=== PATIENT | male | born 1955 | race Caucasian/White ===

== ENCOUNTER 2017-12-10 16:05 | Outpatient (RCR) | payer OTHER ==
[~2017-12-10 16:05] MED LIST: ASPI-715 PO; DIPH-911 PO; PRAV20TA65 PO; SIMV-44 PO
[2017-12-11] MEDS ORDERED: GADOBENATE 529MG/1ML 15ML VIAL IVP ONE (13:47)
--- NOTE | 2017-12-11 15:31 | RADIOLOGY IMAGING REPORT ---
FACILITY: [facility] PATIENT NAME: Oliver Rosales : 1955 MR: [id number] V: [id number] EXAM DATE: ORDERING PHYSICIAN: SATHISH DARBY TECHNOLOGIST: Location: [facility] [place] Patient: Oliver Rosales : 1955 Visit/Account:[id number] Date of Sevice: 12/11/2017 EXAMINATION: Brain MRI without IV contrast Brain MRI with IV contrast, detailed IACs History: Left asymmetrical sensorineural hearing loss COMPARISON STUDIES: none TECHNIQUE: Multi-planar, multi-sequence brain MRI was performed before and after IV gadolinium. Thin section imaging was performed in the axial and coronal planes centered on the IACs. Contrast: 15 mL of IV MultiHance FINDINGS: IAC detailed study: Brainstem: negative Cerebellopontine angles / IACs / CN VII and VIII: negative Inner ear endolymphatic structures: negative Middle ear: negative Mastoids / petrous apices: negative Rest of brain: Ventricles / sulci / fissures: negative Masses / hemorrhage / midline shift: negative White matter: Within range of normal for age. Extra-axial spaces: negative Calvarium: negative Enhancement pattern: negative Vascular structures: negative Sagittal midline structures: negative Paranasal sinuses / mastoid air cells: Moderate mucosal thickening ethmoid air cells. Mild mucosal th ickening and small retention cysts in the maxillary sinuses. Orbits: negative Visualized upper neck: negative IMPRESSION: 1. Normal MRI of the brain and IACs for the patient's age. There is no evidence of an intracranial ma ss, hemorrhage or acute ischemia. 2. Mild to moderate paranasal sinus disease. Report Dictated By: Bob Mullins MD at 12/11/2017 3:16 PM Report E-Signed By: Bob Mullins MD at 12/11/2017 3:29 PM WSN:[id number]
== END 2017-12-11 18:00 | disposition home or self-care (01) ==
LOC: MRI 16:05 → EDSTATUS 12-11 16:04 → MRI 12-11 18:00
PROVIDERS: ATTEND Otolaryngology
DX: H90.42 Sensorineural hearing loss, unilateral, left ear, with unrestricted hearing on the contralateral side (principal); J32.9 Chronic sinusitis, unspecified
CPT/HCPCS: 36415; 70553; 82565; A9577

== ENCOUNTER → 2018-05-27 | Outpatient (CLI) | payer OTHER ==
[~2018-05-27] MED LIST changes: +TRIA5PAS12 TOP
== END ==
LOC: LAB 15:14
PROVIDERS: ATTEND Otolaryngology
DX: K14.0 Glossitis (principal)
CPT/HCPCS: 36415; 82607; 82746; 83540